=== PATIENT | female | born 2000 | race Caucasian/White ===

== ENCOUNTER 2022-10-20 17:00 | Inpatient (IN) | payer OTHER ==
[2022-10-20] MEDS ORDERED: Sodium Chloride 0.9% 20 ML SDV IV PRN (17:48)
[2022-10-20] MEDS ORDERED: Sodium Chloride 0.9% 10 ML Syringe FLUSH PRN (17:48)
[2022-10-20] MEDS ORDERED: Water For Irrigation,Sterile 1,000 ML Container IRR PRN (17:48)
[2022-10-20] MEDS ORDERED: Ondansetron 4 MG/2 ML SDV IVPUSH PRN (17:48)
[2022-10-20] MEDS ORDERED: Lidocaine 1% 50 ML MDV INJECT PRN (17:48)
[2022-10-20] MEDS ORDERED: Sodium Chloride 0.9% 2.5 ML Syringe FLUSH PRN (17:48)
[2022-10-20] MEDS ORDERED: Methylergonovine 0.2 MG/1 ML Amp IM PRN (17:48)
[2022-10-20] MEDS ORDERED: Misoprostol 200 MCG Tab PO PRN (17:48)
[2022-10-20] MEDS ORDERED: Terbutaline 1 MG/ML SDV SUBCUT PRN (17:48)
[2022-10-20] MEDS ORDERED: Tranexamic Acid 1,000 MG in Sodium Chloride 0.9% 100 ML IV PRN (17:48)
[2022-10-20] MEDS ORDERED: Carboprost Tromethamine 250 MCG/1 ML Amp IM PRN (17:48)
[2022-10-20] MEDS ORDERED: Ampicillin 2 GM in Sodium Chloride 0.9% 100 ML IV ONE (18:00)
[2022-10-20] MEDS ORDERED: Oxytocin/0.9 % Sodium Chloride 30 UNIT/500 ML BAG IV SCH ×2 (18:00)
[2022-10-20] MEDS: Lactated Ringers 1,000 ML IV SCH (19:08)
[2022-10-20] MEDS: Misoprostol 25 MCG (1/4 of 100 MCG) Tab VAG PRN (19:21)
[2022-10-20] MEDS: Ampicillin 1 GM in Sodium Chloride 0.9% 50 ML IV SCH (23:55)
[2022-10-21] MEDS: Lactated Ringers 1,000 ML IV SCH ×3 (00:05→18:44)
[2022-10-21] MEDS: Ampicillin 1 GM in Sodium Chloride 0.9% 50 ML IV SCH ×5 (04:23→20:16)
[2022-10-21] MEDS: Misoprostol 25 MCG (1/4 of 100 MCG) Tab VAG PRN ×2 (04:27)
[2022-10-21] MEDS: Butorphanol 1 MG/ML SDV IVPUSH PRN ×3 (04:34→10:44)
[2022-10-21] MEDS ORDERED: ePHEDrine 50 MG/ML SDV IVPUSH PRN ×2 (06:37)
[2022-10-21] MEDS ORDERED: Phenylephrine HCl In 0.9% NaCl 1 MG/10 ML Vial IVPUSH PRN (06:37)
[2022-10-21] MEDS ORDERED: Phenylephrine HCl In 0.9% NaCl 1 MG/10 ML Vial IVPUSH SCH (06:45)
[2022-10-21] MEDS ORDERED: Ropivacaine HCl/PF 400 MG in Premix Bag 1 BAG EPIDUR SCH (06:45)
[2022-10-21] MEDS ORDERED: Ibuprofen 800 MG Tab PO PRN (22:07)
[2022-10-21] MEDS ORDERED: oxyCODONE 5 MG Tab PO PRN (22:07)
[2022-10-21] MEDS ORDERED: Lanolin 100% Cream 7 GM Tube TOP PRN (22:07)
[2022-10-21] MEDS ORDERED: Docusate Sodium 100 MG Cap PO PRN (22:07)
[2022-10-21] MEDS ORDERED: Bisacodyl 10 MG Supp RECTAL PRN (22:07)
[2022-10-22] MEDS: Ibuprofen 400 MG Tab PO PRN ×2 (00:16→04:43)
[2022-10-22] MEDS: Acetaminophen 500 MG Tab PO PRN ×5 (00:17→21:38)
[2022-10-22] MEDS: Witch Hazel Medicated Pads 40/Jar TOP PRN ×2 (00:19→16:14)
[2022-10-22] MEDS: Benzocaine/Menthol 20%-0.5% Spray 78 GM Cannister TOP PRN ×2 (00:20→16:14)
== END 2022-10-23 00:30 | disposition home or self-care (01) | DRG 807 ==
LOC: MW.OBCHECK 17:00 → MW.OB 17:01 → MW.OBCHECK 17:46 → OBSVTOIN 10-21 21:35 → MW.OB 10-22 01:03
PROVIDERS: ADMIT Obstetrics & Gynecology; ATTEND Obstetrics & Gynecology
PROC: 10E0XZZ Delivery of Products of Conception, External Approach (ICD-10-PCS; principal; 2022-10-21)
PROC: 10H07YZ Insertion of Other Device into Products of Conception, Via Natural or Artificial Opening (ICD-10-PCS; 2022-10-21)
PROC: 3E0R3BZ Introduction of Anesthetic Agent into Spinal Canal, Percutaneous Approach (ICD-10-PCS; 2022-10-21)
PROC: 00HU33Z Insertion of Infusion Device into Spinal Canal, Percutaneous Approach (ICD-10-PCS; 2022-10-21)
PROC: 0HQ9XZZ Repair Perineum Skin, External Approach (ICD-10-PCS; 2022-10-21)
PROC: 3E0P7VZ Introduction of Hormone into Female Reproductive, Via Natural or Artificial Opening (ICD-10-PCS; 2022-10-21)
DX: O99.824 Streptococcus B carrier state complicating childbirth (principal); Z37.0 Single live birth; Z3A.39 39 weeks gestation of pregnancy; Z86.16 Personal history of COVID-19; O70.0 First degree perineal laceration during delivery; O09.813 Supervision of pregnancy resulting from assisted reproductive technology, third trimester; O69.81X0 Labor and delivery complicated by cord around neck, without compression, not applicable or unspecified
CPT/HCPCS: 36415; 51701; 51702; 51703; 59025; 59409; 82803; 85014; 85018; 85027; 86592; 86850; 86900; 86901; A9270-GY; J0290; J0595; J2590; J7120; U0002